=== PATIENT | male | born 1945 | race Caucasian/White ===

== ENCOUNTER 2022-07-22 02:30 | Day surgery (SDC) | payer MEDICARE, SELFPAY ==
[2022-07-08 10:36] VITALS: BMI 35.9
[2022-07-22 07:40] LABS: Glucose Point of Care 99 mg/dl (65-105)
[2022-07-22 07:43] VITALS: BP 165/67; PULSE 60; RESP 20; TEMP 36.4; O2SAT 98
[2022-07-22] MEDS: LACTATED RINGERS 1,000 ML 150 ML IV CONT (07:53)
--- NOTE | 2022-07-22 07:57 | PM.HPGS ---
History of Present Illness History of Present Illness Consent: Risks, benefits, and alternatives have been discussed and questions answered. Patient agrees to proceed with procedure. Chief complaint: hx colon polyps Narrative: Levon Cat is a 76 year old male Presents for screening colonoscopy. Patient's current weight appetite and bowel movements are normal. Patient denies abdominal pain. He has had no bleeding. Patient reports 4 years ago had colon polyps identified by Dr. Landeros in [place]. Patient presents today for screening colonoscopy follow-up. Review of Systems Review of Systems: Review of systems noncontributory. [facility] Social History Social History Smoking status: Never smoker Substance use: never Living arrangements: with family Spiritual care concerns: No Meds Home Medications and Allergies Home Medications Medication Instructions Recorded Confirmed Type aspirin 81 mg tablet,delayed 81 mg PO DAILY 07/08/22 07/08/22 History release cholecalciferol (vitamin D3) 50 50 mcg PO DAILY 07/08/22 07/08/22 History mcg (2,000 unit) tablet (Vitamin D3) lansoprazole 30 mg capsule,delayed 30 mg PO DAILY 07/08/22 07/08/22 History release metformin 500 mg tablet,extended 500 mg PO DAILY 07/08/22 07/22/22 History release 24 hr simvastatin 20 mg tablet 20 mg PO DAILY 07/08/22 07/08/22 History Allergies Allergy/AdvReac Type Severity Reaction Status Date / Time No Known Allergies Allergy Verified 07/22/22 07:39 Vital Signs Vital Signs - 24 hr 07/22/22 07:43 Temperature 97.5 F L Pulse Rate 60 Respiratory Rate 20 Blood Pressure 165/67 H Pulse Oximetry 98 Oxygen Delivery Room Air Exam Narrative: Physical exam reveals patient to be alert. Vital signs stable. HEENT exam is unremarkable. Patient is anicteric. Lungs are clear to auscultation and percussion. Heart is without murmur or extra sounds. Abdomen bowel sounds are present soft nontender with no organomegaly. Digital external rectal exam is normal. Assessment and Plan Assessment and plan (1) History of colon polyps: Code(s): Z86.010 - Personal history of colonic polyps Status: Acute Assessment and Plan: Patient has a history of colon polyps. Most recently 4 years ago. Plan for surveillance colonoscopy now. Consider follow-up in 5 years depending on health.
--- NOTE | 2022-07-22 08:07 | P.PNAN_ITS ---
Anes - Initial Pre Proc Eval Procedure: Operation Date: 07/22/22 08:30 Proposed Procedures p Colonoscopy - Rasheed Michel MD Date/Time: 07/22/22 08:07 Surgeon: Rasheed Michel MD Pre Op Diagnosis: hx colon polyps Patient Data Age: 76 Gender: M Height: 1.7 m Weight: 105 kg Last Vital Signs Temp 36.4 C L 07/22/22 07:43 Pulse 60 07/22/22 07:43 Resp 20 07/22/22 07:43 BP 165/67 H 07/22/22 07:43 Pulse Ox 98 07/22/22 07:43 O2 Del Method Room Air 07/22/22 07:43 Allergies Allergy/AdvReac Type Severity Reaction Status Date / Time No Known Allergies Allergy Verified 07/22/22 07:39 Home Medications Medication Instructions Recorded Confirmed Type aspirin 81 mg tablet,delayed 81 mg PO DAILY 07/08/22 07/08/22 History release cholecalciferol (vitamin D3) 50 50 mcg PO DAILY 07/08/22 07/08/22 History mcg (2,000 unit) tablet (Vitamin D3) lansoprazole 30 mg capsule,delayed 30 mg PO DAILY 07/08/22 07/08/22 History release metformin 500 mg tablet,extended 500 mg PO DAILY 07/08/22 07/22/22 History release 24 hr simvastatin 20 mg tablet 20 mg PO DAILY 07/08/22 07/08/22 History Laboratory Tests 07/22/22 07:36 POC Capillary Glucose 99 mg/dl mg/dl (65-105) Patient hx anesthesia problems: none Family hx anesthesia problems: none Results Review: All pre-operative results and documents have been reviewed as part of the pre- operative evaluation. [facility] Past Medical History Medical History (Updated 07/22/22 @ 08:07 by Fercho Baez MD) Diabetes Hyperlipidemia SAADIA (obstructive sleep apnea) Social History Social History Smoking status: Never smoker Substance use: never Living arrangements: with family Spiritual care concerns: No Anes - Eval Final PreProcedure Day of Procedure 07/22/22 08:07 Patient weight: obese Heart: regular rate and rhythm Lungs: clear to auscultation Airway: Mallampati scale class II Neurological: alert and oriented Last oral intake: >/= 8 hours ASA classification: III Emergent: no Anesthetic plan: proceed Anesthesia type and monitoring: general GIVS and standard monitoring Results Review: All pre-operative results and documents have been reviewed as part of the pre-operative evaluation. Informed Consent: The patient's anesthetic plan and its attendant risks and benefits were discussed with the patient/family/POA. Questions were solicited and answers provided to the satisfaction of the patient/family/POA.
[2022-07-22 09:00] VITALS: BP 112/59; PULSE 52; RESP 16; O2SAT 98
[2022-07-22 09:10] VITALS: BP 127/62; PULSE 49; RESP 18; O2SAT 99
[2022-07-22 09:20] VITALS: BP 129/71; PULSE 52; RESP 20; O2SAT 99
== END 2022-07-22 09:26 | disposition home or self-care (01) ==
PROVIDERS: PCP Family Medicine; Visit Provider Internal Medicine Gastroenterology
PROC: 0DJD8ZZ Inspection of Lower Intestinal Tract, Via Natural or Artificial Opening Endoscopic (ICD-10-PCS; CPT 45378; principal; 2022-07-22 08:30)
DX: Z12.11 Encounter for screening for malignant neoplasm of colon (principal); D12.2 Benign neoplasm of ascending colon; E11.9 Type 2 diabetes mellitus without complications; E78.5 Hyperlipidemia, unspecified; G47.33 Obstructive sleep apnea (adult) (pediatric); Z79.84 Long term (current) use of oral hypoglycemic drugs; Z79.82 Long term (current) use of aspirin; E66.9 Obesity, unspecified; Z68.36 Body mass index [BMI] 36.0-36.9, adult
CPT/HCPCS: 45385; 82948; 88305; J2704; J7120